=== PATIENT | male | born 1950 | race Caucasian/White ===

== ENCOUNTER 2019-10-06 08:05 | Emergency (ER) | payer OTHER ==
[~2019-10-06] VITALS: Ht 167.6 cm; Wt 106.6 kg
[2019-10-06] MEDS ORDERED: NEURONTIN300 MG (08:33)
== END 2019-10-06 12:06 | disposition home or self-care (01) ==
LOC: ER 08:05
DX: R33.8 Other retention of urine (principal); N35.819 Other urethral stricture, male, unspecified site

== ENCOUNTER → 2020-10-28 | Outpatient (CLI) | payer OTHER ==
[~2020-10-28] MED LIST: NEURONTIN300 MG
== END | disposition home or self-care (01) ==
LOC: TOM 08:45
PROVIDERS: ATTEND Urology
DX: K40.20 Bilateral inguinal hernia, without obstruction or gangrene, not specified as recurrent (principal); N20.0 Calculus of kidney; N30.00 Acute cystitis without hematuria